=== PATIENT | female | born 1955 | race Caucasian/White ===

== ENCOUNTER 2019-11-12 07:49 | Emergency (ER) | payer OTHER ==
[~2019-11-12] VITALS: Ht 154.9 cm; Wt 100.0 kg
[2019-11-12 08:10] VITALS: BP 133/83; TEMP 96.6
[2019-11-12] MEDS ORDERED: COZAAR 50MG50 MG/TAB PO (08:24)
[2019-11-12] MEDS ORDERED: CYMBALTA 30MG30 MG PO (08:26)
[2019-11-12] MEDS ORDERED: NEURONTIN600 MG/TAB PO (08:27)
[2019-11-12] MEDS ORDERED: AMOXICILLIN 8751 TAB PO (08:57)
[2019-11-12 09:25] VITALS: PULSE 67
== END 2019-11-12 09:25 | disposition home or self-care (01) ==
LOC: COL.ER 07:49
DX: S51.831A Puncture wound without foreign body of right forearm, initial encounter (principal); I10 Essential (primary) hypertension; F32.9 Major depressive disorder, single episode, unspecified; W54.0XXA Bitten by dog, initial encounter; Y92.009 Unspecified place in unspecified non-institutional (private) residence as the place of occurrence of the external cause

== ENCOUNTER → 2020-08-10 | Outpatient (CLI) | payer OTHER ==
[~2020-08-10] MED LIST: AMOXICILLIN 8751 TAB PO; COZAAR 50MG50 MG/TAB PO; CYMBALTA 30MG30 MG PO; NEURONTIN600 MG/TAB PO
== END ==
LOC: COL.RAD 13:24
DX: M47.22 Other spondylosis with radiculopathy, cervical region (principal); M50.13 Cervical disc disorder with radiculopathy, cervicothoracic region

== ENCOUNTER → 2020-11-07 | Outpatient (CLI) | payer OTHER | LOC: MHCPAIN 14:14 | DX: M54.2 Cervicalgia (principal); M79.2 Neuralgia and neuritis, unspecified; E66.8 Other obesity; Z68.41 Body mass index [BMI] 40.0-44.9, adult; G89.29 Other chronic pain | CPT/HCPCS: G0463 ==

== ENCOUNTER 2021-01-08 10:00 | Outpatient (RCR) | payer OTHER | END 2021-02-20 | disposition still patient (30) | LOC: WSPT | DX: M79.7 Fibromyalgia (principal); M47.812 Spondylosis without myelopathy or radiculopathy, cervical region ==

== ENCOUNTER → 2021-01-15 | Outpatient (CLI) | payer OTHER | LOC: MC.RAD 08:04 | DX: Z12.31 Encounter for screening mammogram for malignant neoplasm of breast (principal) ==

== ENCOUNTER → 2021-02-06 | Outpatient (CLI) | payer OTHER | LOC: MHCPAIN 14:47 | DX: M47.812 Spondylosis without myelopathy or radiculopathy, cervical region (principal); M79.2 Neuralgia and neuritis, unspecified; M25.562 Pain in left knee; G89.29 Other chronic pain | CPT/HCPCS: G0463 ==

== ENCOUNTER → 2021-04-30 | Outpatient (CLI) | payer OTHER | LOC: MHCPAIN 09:54 | DX: M47.812 Spondylosis without myelopathy or radiculopathy, cervical region (principal); M79.2 Neuralgia and neuritis, unspecified; M54.2 Cervicalgia; M25.561 Pain in right knee | CPT/HCPCS: G0463 ==

== ENCOUNTER → 2021-07-31 | Outpatient (CLI) | payer OTHER | LOC: MHCPAIN 08:59 | DX: M47.812 Spondylosis without myelopathy or radiculopathy, cervical region (principal); M79.2 Neuralgia and neuritis, unspecified; G89.29 Other chronic pain | CPT/HCPCS: G0463 ==

== ENCOUNTER → 2021-10-30 | Outpatient (CLI) | payer OTHER | LOC: MHCPAIN 08:57 | DX: M47.812 Spondylosis without myelopathy or radiculopathy, cervical region (principal); M54.12 Radiculopathy, cervical region; M79.2 Neuralgia and neuritis, unspecified | CPT/HCPCS: G0463 ==

== ENCOUNTER → 2021-12-24 | Outpatient (CLI) | payer OTHER | LOC: MHCPAIN 12:22 | DX: M47.812 Spondylosis without myelopathy or radiculopathy, cervical region (principal); M54.12 Radiculopathy, cervical region | CPT/HCPCS: J0461; J1100; Q9967 ==

== ENCOUNTER → 2022-01-22 | Outpatient (CLI) | payer OTHER | LOC: MHCPAIN 08:33 | DX: M47.812 Spondylosis without myelopathy or radiculopathy, cervical region (principal); M54.2 Cervicalgia; M79.2 Neuralgia and neuritis, unspecified | CPT/HCPCS: G0463 ==

== ENCOUNTER → 2022-03-15 | Outpatient (CLI) | payer OTHER | LOC: MC.RAD 09:00 | DX: Z12.31 Encounter for screening mammogram for malignant neoplasm of breast (principal) ==

== ENCOUNTER → 2022-04-23 | Outpatient (CLI) | payer OTHER ==
[~2022-04-23] MED LIST changes: +CRESTOR 10MG10 MG PO; +DITROPAN XL 5MG5 M1 PO; +GLUCOPHAGE500 MG/TAB; +LYRICA 75MG CAP75 MG PO; +NORVASC 5MG5 MG/TAB; +NORVASC 5MG5 MG/TAB PO; +PRIL40 PO
== END ==
LOC: MHCPAIN 08:25
DX: M47.812 Spondylosis without myelopathy or radiculopathy, cervical region (principal); M79.2 Neuralgia and neuritis, unspecified; M54.2 Cervicalgia
CPT/HCPCS: G0463

== ENCOUNTER 2022-05-21 21:13 | Observation (INO) | payer MEDICARE ==
[~2022-05-21] VITALS: Wt 94.1 kg
[~2022-05-21 21:13] MED LIST changes: -CRESTOR 10MG10 MG PO; -DITROPAN XL 5MG5 M1 PO; -GLUCOPHAGE500 MG/TAB; -LYRICA 75MG CAP75 MG PO; -NORVASC 5MG5 MG/TAB; -NORVASC 5MG5 MG/TAB PO; -PRIL40 PO
[2022-05-21 21:51] LABS: BASO % 0.4 % (0.0-2.0); EOS # 0.2 K/mm3 (0.0-0.7); EOS % 2.1 % (0.0-4.0); GRAN # 4.5 K/mm3 (1.4-6.5); HEMATOCRIT 43.3 % (37.0-47.0); HEMOGLOBIN 13.9 g/dl (12.5-16.0); LYMPH # 2.3 K/mm3 (1.2-3.4); LYMPH % 30.2 % (20.0-51.0); MEAN CELL VOLUME 92 fl (80.0-100.0); MEAN CORPUSCULAR HEMOGLOBIN 29 pg (27-31); MEAN CORPUSCULAR HGB CONC 32 g/dl (33.0-37.0); MEAN PLATELET VOLUME 13.7 fl (7.4-10.4); MONO # 0.6 K/mm3 (0.1-0.6); MONO % 7.9 % (1.7-9.3); PLATELET COUNT 163 K/mm3 (130-400); RED BLOOD COUNT 4.73 M/mm3 (4.10-5.30); REDCELL DISTRIBUTION WIDTH-CV 13.4 % (11.5-14.5)
[2022-05-21 21:53] LABS: PARTIAL THROMBOPLASTIN TIME 38.7 SECONDS (26.0-37.0)
[2022-05-21 22:02] LABS: ALBUMIN 4.2 gm/dL (3.4-4.8); BILIRUBIN,TOTAL 0.5 mg/dL (0.2-1.2); CALCIUM 9.5 mg/dL (8.4-10.2); CREATININE, serum 0.99 mg/dL (0.57-1.11); POTASSIUM 4.9 mmol/L (3.5-4.5); TOTAL PROTEIN 7.5 gm/dL (6.2-8.1)
[2022-05-21 22:08] LABS: TROPONIN-I 0.011 ng/mL (0.00-0.033)
[2022-05-21] MEDS ORDERED: LYRICA 75MG CAP75 MG PO (23:43)
[2022-05-21] MEDS ORDERED: GLUCOPHAGE500 MG/TAB (23:43)
[2022-05-21] MEDS ORDERED: DITROPAN XL 5MG5 M1 PO (23:44)
[2022-05-21] MEDS ORDERED: NORVASC 5MG5 MG/TAB (23:44)
[2022-05-22] VITALS (14 sets, daily range): BP systolic 108–139; BP diastolic 61–81; PULSE 31–74; TEMP 98–98.7
[2022-05-22] MEDS ORDERED: PRIL40 PO (01:52)
[2022-05-22] MEDS ORDERED: CRESTOR 10MG10 MG PO (01:52)
[2022-05-22] MEDS ORDERED: NORVASC 5MG5 MG/TAB PO (01:52)
[2022-05-22 04:31] LABS: BASO # 0.1 K/mm3 (0.0-0.2); BASO % 0.6 % (0.0-2.0); EOS # 0.2 K/mm3 (0.0-0.7); EOS % 1.8 % (0.0-4.0); GRAN # 5.3 K/mm3 (1.4-6.5); GRAN % 65.7 % (42.2-75.2); HEMATOCRIT 38.9 % (37.0-47.0); HEMOGLOBIN 12.8 g/dl (12.5-16.0); LYMPH # 1.9 K/mm3 (1.2-3.4); LYMPH % 23.7 % (20.0-51.0); MEAN CELL VOLUME 91 fl (80.0-100.0); MEAN CORPUSCULAR HEMOGLOBIN 30 pg (27-31); MEAN CORPUSCULAR HGB CONC 33 g/dl (33.0-37.0); MEAN PLATELET VOLUME 13.3 fl (7.4-10.4); MONO # 0.7 K/mm3 (0.1-0.6); PLATELET COUNT 137 K/mm3 (130-400); RED BLOOD COUNT 4.26 M/mm3 (4.10-5.30); REDCELL DISTRIBUTION WIDTH-CV 13.2 % (11.5-14.5)
[2022-05-22 05:05] LABS: ANION GAP 7 mmol/L (7-16); BLOOD UREA NITROGEN 18 mg/dL (10-20); CARBON DIOXIDE 27 mmol/L (23-31); CHLORIDE 108 mmol/L (98-107); CHOLESTEROL 122 mg/dL (0-199); CREATININE, serum 0.86 mg/dL (0.57-1.11); GLUCOSE 107 mg/dL (70-99); HDL CHOLESTEROL 40 mg/dL (40-60); LDL CHOLESTEROL 69 mg/dL; MAGNESIUM 2.3 mg/dL (1.6-2.6); POTASSIUM 4.7 mmol/L (3.5-4.5); SODIUM 142 mmol/L (136-145); TRIGLYCERIDE 66 mg/dL (0-149)
[2022-05-22 05:14] LABS: TROPONIN-I 6 HR POST INITIAL < 0.010 ng/mL (0.00-0.033)
--- NOTE | 2022-05-22 07:49 | NUR ---
Pt assessment complete. Pt is sitting up in bed upon entry, she is A/O x4. Her breathing is even and unlabored on RA. Pt denies any further chest pain/epigastric pain. Denies N/V. No SOB or palpations. POC discussed with patient. No needs at this time. Call light within reach.
--- NOTE | 2022-05-22 10:42 | NUR ---
Shake Sawyer met with patient to discuss discharge planning. Patient lives in [place] with her daughter, Anne who is also at bedside. Patient sees DR. Olvera for primary care and obtains medications from [facility] in the [facility] with no difficulties. Patient does not use any DME and is independent with ADLS. Patient advised she plans to fly to [place] tomorrow to see her other daughter and grandchild. Patient stated her DPOA-HC is her daughter, Anne however SW did not locate copy in EMR. Patient plans to return home at time of discharge.
--- NOTE | 2022-05-22 11:47 | NUR ---
See merge for all medication, assessment,intervention, and vital sign times.
--- NOTE | 2022-05-22 12:17 | NUR ---
Patient cabe back from intervention. Radia band with 14cc or air. States she feels ok. No chest pain. VSS. Continue monitoring.
--- NOTE | 2022-05-22 12:50 | NUR ---
Sushila: Taoism Situation: [employer] stopped by room on rounds Background: PT was resting and content Assessment: No needs right now, they appreciated the visit Recommendation: [employer] will follow up as needed
--- NOTE | 2022-05-22 14:14 | NUR ---
Radial compression band was removed without any bleeding. Band aid placed.
--- NOTE | 2022-05-22 18:35 | NUR ---
Patient was provided with discharge information, all questions ansered. IV access and Telemetry were discontinued. Pt will be taken by wheelchair accompanied by staff.
== END 2022-05-22 18:37 | disposition home or self-care (01) ==
LOC: COL.ER 21:13 → MEDICAL 23:36
PROVIDERS: Emergency Medicine; Student in an Organized Health Care Education/Training Program; ADMIT Internal Medicine
DX: R07.9 Chest pain, unspecified (principal); K21.9 Gastro-esophageal reflux disease without esophagitis; E78.5 Hyperlipidemia, unspecified; I10 Essential (primary) hypertension; E87.5 Hyperkalemia; E11.42 Type 2 diabetes mellitus with diabetic polyneuropathy; Z79.899 Other long term (current) drug therapy; I08.1 Rheumatic disorders of both mitral and tricuspid valves
CPT/HCPCS: C1769; G0378; J1644; J1650; J2250; J2405; J3010; Q9967

== ENCOUNTER 2022-11-04 09:45 | Outpatient (RCR) | payer MEDICARE ==
[~2022-11-04 09:45] MED LIST changes: +ASPI325T6 PO; +CRESTOR 10MG10 MG PO; +DITROPAN XL 5MG5 M1 PO; +DITROPAN XL10 MG PO; +GLUCOPHAGE500 MG/TAB; +LYRICA 75MG CAP75 MG PO; +MASON NATURAL2000 IU PO; +NAPROSYN500 MG PO; +NORVASC 5MG5 MG/TAB; +NORVASC 5MG5 MG/TAB PO; +PRIL40 PO; +ROXICODONE 55 MG/TAB PO
== END 2022-11-05 | disposition home or self-care (01) ==
LOC: WSPT
DX: M17.12 Unilateral primary osteoarthritis, left knee (principal)

== ENCOUNTER 2023-11-27 08:45 | Day surgery (SDC) | payer MEDICARE ==
[2023-11-27] VITALS (13 sets, daily range): BP systolic 94–128; BP diastolic 41–75; PULSE 85–100; TEMP 97.9–98.2
[~2023-11-27] VITALS: Ht 149.9 cm; Wt 92.1 kg
[~2023-11-27 08:45] MED LIST changes: +Acetaminophen 500 MG TAB PO SCH; +Celecoxib 200 MG CAP PO SCH; +LR 1,000 ML IV SCH; +Pregabalin 150 MG CAP PO SCH
[2023-11-27] MEDS ORDERED: PRILOTC (09:34)
[2023-11-27] MEDS ORDERED: CYMBALTA 60MG60 MG PO (09:36)
[2023-11-27] MEDS ORDERED: dexAMETHasone 10 MG/ML VIAL ONE (09:42)
[2023-11-27] MEDS ORDERED: Lidocaine PF 2% (20 MG/ML) 5 ML VIAL ONE ×2 (09:42→11:02)
[2023-11-27] MEDS ORDERED: Midazolam 2 MG/2 ML VIAL ONE (09:43)
[2023-11-27] MEDS ORDERED: Tranexamic Acid 1,000 MG/10 ML VIAL ONE ×2 (10:39→12:21)
[2023-11-27] MEDS ORDERED: Ondansetron 4 MG/2 ML VIAL ONE (11:03)
[2023-11-27] MEDS ORDERED: Magnes Hydrox (MOM) 80 MG/ML 30 ML CUP PO PRN (11:15)
[2023-11-27] MEDS ORDERED: Ondansetron 4 MG/2 ML VIAL IV PRN ×2 (11:15→12:30)
[2023-11-27] MEDS ORDERED: Naloxone 0.4 MG/ML VIAL IV PRN (11:15)
[2023-11-27] MEDS ORDERED: HYDROmorphone 2 MG/1 ML VIAL ONE (11:20)
[2023-11-27] MEDS ORDERED: Topical Skin Adhesive 1 EACH (1 ML) TOP ONE (11:32)
[2023-11-27] MEDS ORDERED: fentaNYL 50 MCG/ML 2 ML VIAL IV PRN (12:30)
[2023-11-27] MEDS ORDERED: HYDROmorphone 2 MG/1 ML VIAL IV PRN (12:30)
[2023-11-27] MEDS ORDERED: hydrALAZINE 20 MG/ML 1 ML VIAL IV PRN (12:30)
--- NOTE | 2023-11-27 14:48 | NUR ---
PT TO ROOM 329 PER BED WITH REPORT FROM PAIGE FLAHERTY [email or web address]. PT IS A/O X4, LUNGS CTA, BOWEL SOUNDS PRESENT. RIGHT KNEE CDI WITH AQUACEL UNDER ACEWRAP. IV TO LFA. DAUGHTER AT BEDSIDE. PT REPORTING PAIN IS BETTER.
--- NOTE | 2023-11-27 15:11 | NUR ---
PAGED JESI FRANKS PA TO UPDATE ON PT SOFT BP. AWAITING RESPONSE.
[2023-11-27] MEDS ORDERED: NS 1,000 ML IV SCH (15:45)
[2023-11-27] MEDS ORDERED: ceFAZolin 2 G in Water For Injection,Sterile 20 ML IV SCH (18:30)
[2023-11-27] MEDS ORDERED: HYDROmorphone 0.5 MG/0.5 ML SYRINGE IV PRN (19:15)
[2023-11-27] MEDS ORDERED: oxyCODONE 5 MG TAB PO PRN (19:15)
--- NOTE | 2023-11-27 20:30 | NUR ---
PT AMBULATES IN HALLWAY WITH STAFF, GAIT STEADY WITH WALKER.
[2023-11-27] MEDS ORDERED: Sennosides/Docusate 8.6-50 MG TAB PO SCH (21:00)
[2023-11-27] MEDS ORDERED: DULoxetine 60 MG CAP PO SCH (21:00)
[2023-11-27] MEDS ORDERED: amLODIPine 5 MG TAB PO SCH (21:00)
--- NOTE | 2023-11-27 21:24 | NUR ---
PT IN BED, HAS ICE PACK TO RT KNEE, HAS AQUACEL DRSG COVERED WITH JANIE WRAP AND SCDS ON. HS MEDS GIVEN INCLUDING PRN OXYCODONE 5MG PO FOR RT KNEE PAIN. HAS IVF TO RFA INFUSING WITHOUT PROBLEM.
[2023-11-28 00:09] VITALS: BP_SYST 120
--- NOTE | 2023-11-28 02:15 | NUR ---
PT ASSISTED TO BATHROOM WITH WALKER/SBA, VOIDS AND BACK TO BED. B/P IMPROVED, TAKING ORAL FLUIDS WITHOUT PROBLEM. CAPPED IVF NOW. MEDICATED WITH OXYCODONE 5MG PO FOR PAIN TO RT KNEE 02/12. ICE PACK REPLACED.
[2023-11-28 03:26] VITALS: BP 130/79; PULSE 92; TEMP 98.1
[2023-11-28 04:00] VITALS: BP_SYST 130
--- NOTE | 2023-11-28 05:58 | NUR ---
PT COMPLAINS OF RT KNEE PAIN 05/15, OXYCODONE 5MG PO GIVEN NOW. ASSISTED TO BATHROOM, VOIDS AND BACK TO BED.
[2023-11-28] MEDS ORDERED: ASPIRIN E.C. 8181 MG PO (06:07)
[2023-11-28 06:22] LABS: HEMOGLOBIN 11.8 g/dl (12.5-16.0)
[2023-11-28 06:32] LABS: HEMATOCRIT 35.8 % (37.0-47.0)
--- NOTE | 2023-11-28 07:01 | NUR ---
REPEATED OXYCODONE 5MG PO NOW.
[2023-11-28 07:14] VITALS: BP 136/83; PULSE 95; TEMP 98
[2023-11-28 07:53] VITALS: BP_SYST 136
--- NOTE | 2023-11-28 08:10 | NUR ---
PT RESTING IN BED WITH PAIN 4/10 IN RIGHT KNEE. OCCLUSIVE DRESSING AND ICE APPLIED. STEADY GAIT WITH 1 ASSIST AND WALKER TO BATHROOM. PT A/O X4, TOLERATING DEIT WELL, DISCHARGE ORDERS PLACED. PT PLANNING TO WORK WITH THERAPY BEFORE D/C. WILL CONTINUE TO MONITOR.
[2023-11-28] MEDS ORDERED: Losartan 50 MG TAB PO SCH (09:00)
--- NOTE | 2023-11-28 09:16 | NUR ---
BAR Malagon identified self as BAR Student and completed intake with patient and daughter Anne at bedside. Patient lives in [place], [place] with her daughter Anne (ph#[phone]). Patient stated that her primary care provider is Dr. Benito Olvera but she has been seeing ЮЛИЯ Curiel more recently. Patient prefers to obtain medications from [facility] [place]. Patient denied any issues with affording medications. Patient stated that she has a FWW, cane, toilet seat riser, and shower chair. Patient stated that she is independent with ADLs. Patient has a DPOA-HC appointed to her daughter Anne. Patient is covered by [facility]. BAR Malagon went over PT recommendation of outpatient PT. Patient stated that she will be going to [facility] on [address] and she has her appointment already scheduled. Patient plans to return home with outpatient PT at time of discharge. Discharge Plan: Home with outpatient PT
--- NOTE | 2023-11-28 10:02 | NUR ---
Pt and family provided with discharge instructions. Discussed follow up appointments, new medicaitons, and follow up appointments. No questions at this time. IV removed. Pt escorted out of building via wheelchair.
== END 2023-11-28 10:09 | disposition home or self-care (01) ==
LOC: SDCO 08:45 → SURG 14:30 → SDCO 11-28 10:09
PROVIDERS: Orthopaedic Surgery
DX: M17.11 Unilateral primary osteoarthritis, right knee (principal); I10 Essential (primary) hypertension; K21.9 Gastro-esophageal reflux disease without esophagitis; Z79.899 Other long term (current) drug therapy
CPT/HCPCS: OP; A6197; C1713; C1776; J0690; J1100; J1170; J2250; J2405; J2704; J2795; J3010; J7030; J7120

== ENCOUNTER → 2023-12-04 | Outpatient (RCR) | payer MEDICARE ==
[~2023-12-04] MED LIST changes: +ASPIRIN E.C. 8181 MG PO; -Acetaminophen 500 MG TAB PO SCH; +CYMBALTA 60MG60 MG PO; -Celecoxib 200 MG CAP PO SCH; -LR 1,000 ML IV SCH; +PRILOTC; -Pregabalin 150 MG CAP PO SCH
== END ==
LOC: WSPT
DX: Z96.651 Presence of right artificial knee joint (principal)

== ENCOUNTER 2024-01-02 09:00 | Outpatient (RCR) | payer MEDICARE | END 2024-01-04 | disposition home or self-care (01) | LOC: WSPT | DX: Z96.651 Presence of right artificial knee joint (principal) ==

== ENCOUNTER 2024-01-23 16:00 | Outpatient (RCR) | payer MEDICARE | END 2024-01-23 17:00 | disposition home or self-care (01) | LOC: WSPT 16:00 | DX: Z96.651 Presence of right artificial knee joint (principal) ==

== ENCOUNTER → 2024-04-23 | Outpatient (CLI) | payer MEDICARE | LOC: MC.RAD 08:03 | DX: Z12.31 Encounter for screening mammogram for malignant neoplasm of breast (principal) ==